=== PATIENT | female | born 1985 | race Caucasian/White ===

== ENCOUNTER 2016-12-04 08:06 | Emergency (ER) | payer BC, OTHER ==
[~2016-12-04] VITALS: Ht 172.7 cm; Wt 96.5 kg
[~2016-12-04 08:06] MED LIST: POLYSOL3 OPB
[2016-12-04 08:14] VITALS: TEMP 36.8; Ht 172.7 cm; Wt 96.5 kg
[2016-12-04] MEDS ORDERED: XYLOCAINE 1%/SOD BICARB 20 ML VIAL INFIL STA (08:23)
[2016-12-04] MEDS ORDERED: DIPHTHERIA/TETANUS/PERTUSSIS 0.5 ML SYR/VIAL IM. ONE (08:30)
--- NOTE | 2016-12-04 08:45 | DIAGNOSTIC IMAGING REPORT ---
NASAL BONES MIN 3 VIEWS CLINICAL HISTORY: Nasal trauma with laceration trauma COMPARISON STUDY: None FINDINGS: Normal study IMPRESSION: Normal study The above report was generated using voice recognition software. It may contain grammatical, syntax or spelling errors. Electronically signed by: Will Maharaj M.D. 12/04/2016 8:44 AM Dictated Date/Time: 12/04/2016 8:43 AM
[2016-12-04] MEDS ORDERED: CLC/300 PO (09:31)
[2016-12-04] MEDS ORDERED: DOXY-300 PO (09:31)
--- NOTE | 2016-12-04 09:31 | EMERGENCY ROOM VISIT NOTE ---
ED Visit Note First contact with patient: 08:18 Chief Complaint: Facial Laceration History of Present Illness: This patient is a 31-year-old female who presents to the Emergency Department via private vehicle for evaluation of their left nasal laceration. Patient sustained the laceration while awakening her dog, around 7 AM when the dog swung the nose around and struck her nose. They report a moderate amount of bleeding initially. They report no loss of consciousness. They deny any headache, visual disturbance, nausea, vomiting, or neck pain. They have tried nothing for the pain as she notes it is minimal. Patient rates her current discomfort as a 2/10. Patient's Tetanus status is not currently up- to-date. Medications: As noted below Allergies: None PMH: No pertinent SHx: Patient lives locally ROS: All pertinent positive and negative review of systems are appropriately documented in the History of Present Illness. Physical Exam: VITAL SIGNS - Vital signs and nursing notes were reviewed. GENERAL -31-year-old female appearing her stated age. Communicates well with provider and answers questions appropriately. SKIN - There is a 2.2 cm laceration noted to the nose. The edges gape apart with traction. There is minimal active bleeding appreciated. No deep structures including vessels, musculature, or bony structures are appreciated. HEAD - Normocephalic. No Bhatt's Sign or Raccoon's Eyes. No depressed skull fractures palpable. EYES - PERRL with EOMI bilaterally. Without subconjunctival hemorrhage. Palpebral conjunctiva pink and moist with no injection. EARS - No deformities of external structures noted on gross examination bilaterally. No hemotympanum present. No tympanic perforation noted. NOSE - Midline and without cyanosis. No epistaxis or clear watery discharge noted. Septum midline without deviation. No septal hematoma noted. No overlying ecchymosis noted. MOUTH/OROPHARYNX - Without perioral cyanosis. Tongue midline with equal elevation of palate bilaterally. No blood noted in the oropharynx. No tonsillar hypertrophy, erythema, or exudates noted. No dental fractures noted. NECK - FROM assessed. No tenderness to palpation over the cervical spinous processes. No cervical paraspinal muscle tenderness noted. LUNGS - Chest wall symmetric without accessory muscle use, intercostals retractions, or central cyanosis. Normal vesicular breath sounds CTA B/L. No wheezes, rales, or rhonchi appreciated. CARDIAC - RRR with S1/S2. No murmur, rubs, or gallops appreciated. PSYCH - A&Ox3 and cooperates fully with examiner. Pt is very pleasant and interacts well with examiner. IMAGING: [~ rep ct add3]] NASAL BONES MIN 3 VIEWS CLINICAL HISTORY: Nasal trauma with laceration trauma COMPARISON STUDY: None FINDINGS: Normal study IMPRESSION: Normal study The above report was generated using voice recognition software. It may contain grammatical, syntax or spelling errors. Electronically signed by: Will Maharaj M.D. 12/04/2016 8:44 AM Dictated Date/Time: 12/04/2016 8:43 AM ED Course: Patient was seen and evaluated by myself. Patient had no focal neurological deficits. Patient's exam is otherwise unremarkable. Patient reports no headaches , visual disturbances, nausea, vomiting, or over-lethargy. Xray was obtained after denying change of and was negative. Results as above. Risks and benefits of performing primary wound closure versus no repair were discussed with the patient who verbalizes understanding. Verbal consent was obtained prior to performing the procedure. 3 cc of 1% buffered lidocaine was used to anesthetize the nasal laceration. The wound was cleansed and prepped in the typical sterile fashion utilizing normal saline and Betadine. The wound was sterilely draped. Once proper anesthetization was established, the wound was further examined and demonstrated no deep involvement. The wound was copiously irrigated with normal saline and Betadine. The wound was closed using 3 simple, 6-0 nylon sutures with the wound edges being well approximated. Patient tolerated the procedure well. No complications were met. The wound was cleansed and dressed with a Bacitracin dressing. She'll be prescribed a prophylactic antibiotic over concern for a potential scratch from the dog's tooth. She notes that Augmentin causes a yeast infection, therefore she'll be given clindamycin and doxycycline as per up-to-date recommendations. Patient received their Adacel vaccination. Patient educated on worrisome symptoms for return visit to the Emergency Department. Patient discharged to home in good condition. Evaluation treatment this patient the following differential diagnoses entertained: Nasal laceration, fracture, contusion, among others. Current/Historical Medications Scheduled Clindamycin HCl (Clindamycin HCl), 1 CAP PO TID Doxycycline (Monohydrate) (Doxycycline), 100 MG PO BID Allergies Coded Allergies: No Known Allergies (Unverified , 07/27/13) Vital Signs Date Time Temp Pulse Resp B/P (MAP) Pulse Ox O2 Delivery O2 Flow Rate FiO2 12/04/16 09:44 76 18 149/94 97 12/04/16 08:14 36.8 87 18 148/86 98 Room Air Medications Administered Medications (Trade) Dose Ordered Sig/Rachana Route Start Time Stop Time Status Last Admin Dose Admin Lidocaine HCl (Buffered Lidocaine 1% Inj) 20 ml NOW STAT INFIL 12/04/16 08:23 12/04/16 08:25 DC 12/04/16 08:54 20 ML Diphtheria/ Pertussis/Tetanus Vacc (Adacel Inj) 0.5 ml ONCE ONCE IM. 12/04/16 08:30 12/04/16 08:31 DC 12/04/16 08:57 0.5 ML Departure Information Impression Primary Impression: Facial laceration Additional Impression: Need for tetanus booster Dispostion Home / Self-Care Condition GOOD Prescriptions Clindamycin HCl (Clindamycin HCl) 300 Mg Cap 1 CAP PO TID for 5 Days, #15 CAP Prov: Khai Hanley PA-C 12/04/16 Doxycycline (Monohydrate) (Doxycycline) 100 Mg Cap 100 MG PO BID for 5 Days, #10 TABS Prov: Khai Hanley PA-C 12/04/16 Referrals No Doctor, Assigned (PCP) Patient Instructions [facility] Additional Instructions Discharge Instructions: You have received 3 sutures on your nose. These sutures are NOT dissolvable and WILL need to be removed by a health care provider in 5-7 days. You can return to the Emergency Department or contact your Primary Care Provider to have the sutures removed. Proper wound care is essential for adequate wound healing and infection prevention. You can shower and clean the wound with soap and water. Do not scour over the wound, pat dry with a towel. Do not submerse the wound (i.e. bathe or dish wash) until the sutures have been removed. You can use an antibiotic ointment with a dressing over the wound for the next 2-3 days. After this time you may leave the wound dry and open to the air. If crust develops over the wound you can use a Q-tip to apply a 1:1 peroxide:water solution to clean the wound. Look for signs of infection of the wound including: increased pain, swelling, foul discharge, streaking, or increased temperature. If any of these are noticed you should return to the Emergency Department for further assessment and treatment. As with any laceration you may have received nerve damage to the surrounding tissues. This damage may or may not be permanent. You should keep the area covered with sunscreen for the first 6 months to 1 year when at risk for exposure to help minimize scarring. You can also use scar reducing creams or Vitamin E oil to help minimize scarring. For pain control, you can use the following [id number] medicines (if >12 yo): - Regular strength (325mg/tab) Tylenol (acetaminophen) 2 tabs every 4-6 hours as needed. Do not exceed 12 tablets in a 24 hour period. Avoid taking more than 3 grams (3000 mg) of Tylenol per day. This includes any other sources of acetaminophen you may take on a regular basis. - Regular strength (200 mg/tab) Advil (ibuprofen) 1-2 tabs every 4-6 hours as needed. Do not exceed a dose of 3200 mg per day. Return to the emergency department if your symptoms worsen despite treatment course outlined above. Please return to the emergency department with any new/concerning symptoms. Problem Qualifiers
[2016-12-04 09:44] VITALS: BP 149/94; PULSE 76; O2SAT 97
== END 2016-12-04 09:46 | disposition home or self-care (01) ==
LOC: C.EDB 08:08 → C.EDA 09:46
DX: S01.21XA Laceration without foreign body of nose, initial encounter (principal); W54.1XXA Struck by dog, initial encounter; Y92.019 Unspecified place in single-family (private) house as the place of occurrence of the external cause; Z23 Encounter for immunization

== ENCOUNTER 2016-12-10 08:57 | Emergency (ER) | payer OTHER ==
[~2016-12-10 08:57] MED LIST changes: +CLC/300 PO; +DOXY-300 PO; -POLYSOL3 OPB
[2016-12-10 09:01] VITALS: TEMP 36.7
[2016-12-10 09:24] VITALS: BP 147/84; PULSE 78; O2SAT 99
--- NOTE | 2016-12-10 17:51 | EMERGENCY ROOM VISIT NOTE ---
ED Visit Note First contact with patient: 09:14 Chief complaint: Retained sutures in nose. HPI: This 31-year-old white female presents to the ER for removal of retained sutures in her nose. The patient denies any fevers, chills, sweats, nausea, redness, streaking, purulent drainage, pain with palpation, or other signs of infection. They have been keeping the wound clean and protected as directed. Pain is rated as 0/10. Sutures have been in place for 6 days. No other complaints. Medical history, past surgical history, family history, social history, current medications, allergies, and tetanus status: All are unchanged from previous exam. Please see the chart from the initial wound repair visit. Physical exam Vitals: Afebrile. Reviewed and filed in patient's chart General: Well-developed, well-nourished, young white female, in no acute distress. She looks her stated age. Sitting on the bed, alert and oriented. No visible discomfort. Skin: Warm and dry with good turgor. No rashes or lesions. Sutures are in place. Wound edges are well approximated. No erythema, edema, ecchymosis, purulent drainage, or warmth. No significant discomfort with palpation. Area is nonfluctuant. Neurologic: Gross sensation is intact around the wound via soft touch. Nose is sensitive. Capillary refill is intact and is equal to the surrounding tissue. Impression: Healing laceration, nasal tip Plan: Wound was cleansed with saline. Sutures were removed without event. Wound remained closed. No Steri-Strips were needed. Wound care precautions were reviewed. Watch for any signs of infection, or dehiscense. Return to the ER as needed. Tylenol as needed for any discomfort. Current/Historical Medications No Active Prescriptions or Reported Meds Allergies Coded Allergies: No Known Allergies (Unverified , 07/27/13) Vital Signs Date Time Temp Pulse Resp B/P (MAP) Pulse Ox O2 Delivery O2 Flow Rate FiO2 12/10/16 09:24 78 20 99 12/10/16 09:01 36.7 78 20 147/84 99 Room Air Departure Information Dispostion Home / Self-Care Condition GOOD Prescriptions No Active Prescriptions or Reported Meds Referrals No Doctor, Assigned (PCP) Forms HOME CARE DOCUMENTATION FORM, IMPORTANT VISIT INFORMATION Patient Instructions [facility]
== END 2016-12-10 09:24 | disposition home or self-care (01) ==
LOC: C.EDB 08:58 → C.EDA 09:24
DX: S01.20XD Unspecified open wound of nose, subsequent encounter (principal); X58.XXXD Exposure to other specified factors, subsequent encounter